=== PATIENT | male | born 2000 | race Caucasian/White ===

== ENCOUNTER 2019-12-17 17:55 | Emergency (ER) | payer OTHER ==
[2019-12-17] MEDS ORDERED: Acetaminophen TAB* 325 MG PO ONE (18:15)
[2019-12-17] MEDS ORDERED: Lidocaine 1% MPF ** 5 ML VIAL INJ ONE (20:22)
--- NOTE | 2019-12-17 20:41 | ED ---
Laceration/Wound HPI - HPI Summary HPI Summary: 19 year old male presents with right hand laceration today. States that was playing soccer and kicked a ball and went over a fence cut him. He is in college and is believes his immunizations are up-to-date. Area continues to bleed. He has full ROM of fingers. no numbness or tingling. Is right-handed. Has no medical conditions. Denies any foreign by the wound. - History of Current Complaint Stated Complaint: RT HAND LAC PER PT Time Seen by Provider: 12/17/19 19:58 Pain Intensity: 3 - Allergy/Home Medications Allergies/Adverse Reactions: Allergies Allergy/AdvReac Type Severity Reaction Status Date / Time No Known Allergies Allergy Verified 12/17/19 17:58 Home Medications: Home Medications Cephalexin CAP* [Keflex CAP*] 500 mg PO BID #9 cap 12/17/19 [Rx] PMH/Surg Hx/FS Hx/Imm Hx Endocrine/Hematology History: Denies: Hx Diabetes Cardiovascular History: Denies: Hx Hypertension, Hx Pacemaker/ICD History: Denies: Hx Renal Disease Sensory History: Denies: Hx Hearing Aid Psychiatric History: Denies: Hx Panic Disorder - Surgical History Surgery Procedure, Year, and Place: DENIES Infectious Disease History: No Infectious Disease History: Denies: Traveled Outside the [place] in Last 30 Days - Family History Known Family History: Positive: Non-Contributory - Social History Alcohol Use: None Substance Use Type: Reports: None Smoking Status (MU): Never Smoked Tobacco Review of Systems Negative: Fever Negative: Chest Pain Negative: Shortness Of Breath Positive: Other - right hand laceration All Other Systems Reviewed And Are Negative: Yes Physical Exam Triage Information Reviewed: Yes Vital Signs On Initial Exam: Initial Vitals Temp Pulse Resp BP Pulse Ox 97.6 F 104 16 135/88 97 12/17/19 17:57 12/17/19 17:57 12/17/19 17:57 12/17/19 17:57 12/17/19 17:57 Vital Signs Reviewed: Yes Appearance: Positive: Well-Appearing Skin: Positive: Warm, Dry, Other - 4cm by 2cm by 1/2cm irregular laceration of right hand, superficial abrasions to right hand Head/Face: Positive: Normal Head/Face Inspection Eyes: Positive: Normal, Conjunctiva Clear ENT: Positive: Pharynx normal Respiratory/Lung Sounds: Positive: Clear to Auscultation, Breath Sounds Present Cardiovascular: Positive: Normal, RRR Musculoskeletal: Positive: Normal Neurological: Positive: Normal Psychiatric: Positive: Normal Procedures - Sedation Patient Received Moderate/Deep Sedation with Procedure: No - Laceration/Wound Repair 1 Location: Other - right hand Description: Irregular Anesthesia: Local, 1.0% Length, Depth and Shape: 4cm by 2cm by 1/2cm Suture Type: Prolene Number of Sutures: 6 Diagnostics - Vital Signs Vital Signs Temp Pulse Resp BP Pulse Ox 12/17/19 17:57 97.6 F 104 16 135/88 97 - Laboratory Lab Statement: Any lab studies that have been ordered have been reviewed, and results considered in the medical decision making process. Laceration Repair Course/Dx - Course Course Of Treatment: 19 year old male presents with right hand laceration today. States that was playing soccer and kicked a ball and went over a fence cut him. He is in college and is believes his immunizations are up-to-date. Area continues to bleed. He has full ROM of fingers. no numbness or tingling. Is right-handed. Has no medical conditions. Denies any foreign by the wound. On exam has couple superficial abrasions and 4cm by 2cm by 1/2cm laceration over the palmar aspect right hand. full ROM of fingers. Cleaned area extensively and placed 6 sutures. Tono taped pinky and ring finger and will place on keflex as extends to tendon but does not appear to involve tendon. gave referral to ortho if needed. told to change dressing and wash area with soap and water. patient understand and agrees with plan. - Differential Dx Differental Diagnoses: Abrasion, Avulsion, Laceration - Clinical Impression Provider Diagnoses: Laceration of right hand - Critical Care Time Critical Care Statement: Critical care time is provided exclusive of any time spent performing procedures. Discharge ED - Sign-Out/Discharge Documenting (check all that apply): Patient Departure - Discharge Plan Condition: Good Disposition: HOME Prescriptions: Cephalexin CAP* [Keflex CAP*] 500 mg PO BID #9 cap Patient Education Materials: Care For Your Stitches (ED) Referrals: No Primary Care Phys,NOPCP [Primary Care Provider] - Santhosh Mitchell MD [Medical Doctor] - Additional Instructions: Take Tylenol or ibuprofen for pain every 6 hours as needed take keflex twice a day for 5 days Keep area clean and dry for 24 hours Return to ED or primary in 8-10 days to have sutures removed change dressing daily A referral was given for ortho Return to ED if develop signs of infection such as fever, spreading redness, or pus. - Billing Disposition and Condition Condition: GOOD Disposition: Home
[2019-12-17] MEDS ORDERED: Cephalexin CAP* 500 MG PO ONE (21:17)
[2019-12-17 21:37] VITALS: BP 111/71
== END 2019-12-17 21:32 | disposition home or self-care (01) ==
LOC: ED 17:55
DX: S61.411A Laceration without foreign body of right hand, initial encounter (principal); W45.8XXA Other foreign body or object entering through skin, initial encounter; Y93.66 Activity, soccer; Y92.9 Unspecified place or not applicable
CPT/HCPCS: 12002; 99285; A9270-GY